=== PATIENT | male | born 1965 | race Caucasian/White ===

== ENCOUNTER 2017-10-06 07:04 | Emergency (ER) | payer BC, OTHER ==
--- NOTE | 2017-10-06 08:07 | UC ---
Abdominal Pain Male HPI - HPI Summary HPI Summary: Pt states woke with abdominal cramps and diarrhea yesterday morning. Pt with episodic severe cramps relieved by diarrhea throughout the day yesterday and this morning. Pt states frequency has slowed down. no nausea. no fever. no analgesia taken. Pt did try pepto and mylanta without relief. no known sick contact. + UOP. no rash decreased appetitie. pt did have rice last night and gatorade early this morning which made cramping occur. no po today. Pt missed work today. Pt states sx have improved a little Pt's medications reviewed this visit - History of Current Complaint Chief Complaint: UCGI Stated Complaint: DIARRHEA Time Seen by Provider: 10/06/17 07:23 Pain Intensity: 0 - Allergies/Home Medications Allergies/Adverse Reactions: Allergies Allergy/AdvReac Type Severity Reaction Status Date / Time codeine Allergy Diarrhea Verified 10/06/17 07:16 Home Medications: Home Medications Al Hydrox/Mg Hydrox/Micaela BULK* [Mylanta - BULK BOT*] 10 ml PO DAILY 10/06/17 [ History Confirmed 10/06/17] Bismuth Subsalicylate [Pepto-Bismol] 15 ml PO DAILY 10/06/17 [History Confirmed 10/06/17] PMH/Surg Hx/FS Hx/Imm Hx Previously Healthy: Yes - Surgical History Surgical History: None - Family History Known Family History: Positive: Hypertension - Social History Occupation: Employed Full-time Lives: With Family Alcohol Use: Daily Alcohol Amount: 2 DAILY Substance Use Type: None Smoking Status (MU): Never Smoked Tobacco Review of Systems Constitutional: Negative Gastrointestinal: Diarrhea, Other - intermittent cramping All Other Systems Reviewed And Are Negative: Yes Physical Exam - Summary Physical Exam Summary: Vital Signs Reviewed: Yes A+Ox3, no distress Eyes: Conjunctiva Clear, SNEHA. EOM intact and full ENT: Hearing grossly normal TM x 2 clear, mmoist, lips dry, mmmoist, no exudate , no erythema Neck: Positive: Supple Respiratory: Positive: No respiratory distress, No accessory muscle use + CTA throughout no w/r Cardiovascular: RRR nl s1, s2 no m/r CBT <2 sec abd soft + BS nt/nd no guarding, no distension no CVA Musculoskeletal Exam: GATES x 4 without difficulty Strength Intact, ROM Intact Neurological: Positive: Alert, + sensation throughout Psychological: Positive: Normal Response To Family Skin: Positive: no rash, no ecchymosis Triage Information Reviewed: Yes Vital Signs: Initial Vital Signs Temp 98 F 10/06/17 07:14 Pulse 76 10/06/17 07:14 Resp 15 10/06/17 07:14 BP 114/84 10/06/17 07:14 Pulse Ox 98 10/06/17 07:14 Abd Pain Male Course/Dx - Course Course Of Treatment: Pt with abd cramps relieved by diarrhea since yesterday. Pt states has slowed some - still discomfort no fever, chills. no trave, abx no sick contact. pt with fatigues. Will check urine for dehydration, although clinically mild dehydration. reviewed urine with pt - slight increased bili and protein. recommend clears to bland. immodium. Will give bentyl ( has used previously and requested). return precaution. work note. pt comfortable and in agreement with plan - Differential Dx/Clinical Impression Provider Diagnoses: abdominal cramping, diarrhea Discharge - Sign-Out/Discharge Documenting (check all that apply): Patient Departure All imaging exams completed and their final reports reviewed: No Studies - Discharge Plan Condition: Stable Disposition: HOME Prescriptions: Dicyclomine CAP* [Bentyl CAP*] 10 mg PO Q8HR #10 cap Patient Education Materials: Acute Diarrhea (ED) Forms: *Gen. Provider Communication, *Work Release Referrals: No Primary Care Phys,NOPCP [Primary Care Provider] - [facility] [Outside] Care [facility] [Outside] Additional Instructions: - For the first 3-4 hours, eat and drink clears (water, charline yanelis, soup broth, jello, popsicles,) - small, frequent sips are important. If you tolerate this okay, add bland foods such as dry toast, rice, scrambled eggs, crackers. Wait until you are feeling better for 24 hours before eating spicy food, acidic food , tomato based food, fried food. - Okay to take tylenol (acetaminophen) every 6-8 hours to help with abdominal cramping - It is recommend you to immodium OR Dicyclomine as prescribed to help with cramping -Okay to try applying heat to your abdomen to help with your cramping and discomfort - It is recommended you place a pillow under your knees when you are laying on your back to help relax the muscles in your stomach - If you diarrhea persists over the next 24 hours, return a stool sample for further testing - if you develop increased or uncontrolled pain, fevers (temperature > 100.4), vomiting, or any other concerns it is recommended you go to the emergency department - you have also been given referral information for the physician referral center and the [facility] - okay to call either to establish with a primary care provider - Billing Disposition and Condition Condition: STABLE Disposition: Home
== END 2017-10-06 08:12 | disposition home or self-care (01) ==
LOC: UCCORT 07:04
DX: R10.9 Unspecified abdominal pain (principal); R19.7 Diarrhea, unspecified
CPT/HCPCS: 81003; 99202; G0463